=== PATIENT | male | born 1970 | race Caucasian/White ===

== ENCOUNTER 2016-08-30 | Emergency (ER) | payer BC, OTHER ==
[~2016-08-30] VITALS: Ht 180.3 cm; Wt 115.6 kg
[2016-08-30] MEDS ORDERED: SODIUM CHLORIDE FLUSH 10ML SYR IVF ONE (00:30)
[2016-08-30] MEDS ORDERED: SODIUM CHLORIDE 0.9% 1,000ML IV ONE (00:30)
[2016-08-30] MEDS ORDERED: KETOROLAC 30 MG/1 ML IVPush ONE (00:30)
[2016-08-30] MEDS ORDERED: ONDANSETRON 2MG/ML, 2ML IVPush ONE (00:30)
[2016-08-30] MEDS ORDERED: KETOROLAC 30 MG/1 ML ONE (00:45)
[2016-08-30] MEDS ORDERED: ONDANSETRON 2MG/ML, 2ML ONE (00:45)
[2016-08-30] MEDS ORDERED: LISI-170 PO (00:52)
[2016-08-30 00:55] LABS: BLOOD UREA NITROGEN 16 mg/dL (7-18)
[2016-08-30 02:53] VITALS: BP 127/83
== END 2016-08-30 02:54 | disposition home or self-care (01) ==
LOC: ED 01:47
DX: N20.1 Calculus of ureter (principal)
CPT/HCPCS: 36415; 76770; 80048; 81001; 82040; 85025; 96361; 96374; 96375; 99285; J1885; J2405; J7030